=== PATIENT | female | born 1990 | race Two or more races ===

== ENCOUNTER 2018-06-22 08:40 | Emergency (ER) | payer SELFPAY ==
[~2018-06-22] VITALS: Ht 172.7 cm; Wt 72.6 kg
[2018-06-22 08:44] VITALS: BP 123/85
--- NOTE | 2018-06-22 08:50 | NUR ---
ED Nurse Note: Patient walked into ED from home c/o gel earplug stuck in the LEFT ear since this morning patient could not get it out. alert and awake x4, ambulatory steady gait.
[2018-06-22 08:58] VITALS: BP 123/85
[2018-06-22] MEDS ORDERED: CORTISPORIN EAR10 ML OTIC (08:58)
--- NOTE | 2018-06-22 09:04 | Emergency Room Report ---
History of Present Illness General Chief Complaint: Earache Source: Patient Present Illness HPI Patient presents with complaints of foreign body in the left ear Reports that last night she had put an ear plug in an this morning was not able to remove it When she tried to remove it seemed to break up Pain is 4 out of 10 localized to the left ear Denies any discharge denies any posterior ear pain denies any neck pain or photophobia Allergies: Coded Allergies: No Known Allergies (Unverified , 06/22/18) Patient History Past Medical History: see triage record Pertinent Family History: none Last Menstrual Period: 05/2018 Now: No Reviewed Nursing Documentation: PMH: Agreed; PSxH: Agreed Nursing Documentation-PMH Past Medical History: No Stated History Review of Systems All Other Systems: negative except mentioned in HPI Physical Exam Vital Signs Date Time Temp Pulse Resp B/P (MAP) Pulse Ox O2 Delivery O2 Flow Rate FiO2 06/22/18 08:44 97.5 65 19 123/85 98 Room Air Sp02 EP Interpretation: reviewed, normal General Appearance: well appearing, no apparent distress Head: normocephalic, atraumatic Eyes: bilateral eye PERRL, bilateral eye EOMI ENT: other - Patient does have the other ear plug that was used there is a gelatinous material jarrell retained in the left ear visible by external examination Neck: supple Respiratory: lungs clear Musculoskeletal: normal inspection Neurologic: alert, oriented x3 Skin: normal color, no rash Medical Decision Making Diagnostic Impression: Primary Impression: ear foreign body ER Course Given the exam patient does require to have the retained body removed initially using forceps it appears to break up the foreign body therefore two ear curretes were used and with this I was able to remove the foreign body without any further deterioration. Reexamination of the canal appears to be intact tympanic membrane is appropriate, there is some mild erythema in the canal itself and therefore the patient was placed on oral drop antibiotics Last Vital Signs Date Time Temp Pulse Resp B/P (MAP) Pulse Ox O2 Delivery O2 Flow Rate FiO2 06/22/18 08:44 97.5 65 19 123/85 98 Room Air Status: improved Disposition: HOME, SELF-CARE Condition: Improved Scripts Neomycin/Polymyxin B Sulf/Hc* (CORTISPORIN EAR SOLUTION*) 10 Ml Solution 2 DROP OTIC BID for 3 Days, #1 EA Instill in affected ear as directed for 7 days Prov: Valente Hoffmann DO 06/22/18 Patient Instructions: Ear Foreign Body, [id number] Additional Instructions: Patient is provided with the discharge instructions notified to follow up with primary doctor in the next 2-3 days otherwise return to the er with any worsening symptoms. Please note that this report is being documented using DRAGON technology. This can lead to erroneous entry secondary to incorrect interpretation by the dictating instrument. Valente Hoffmann DO Jun 22, 2018 09:04
--- NOTE | 2018-06-22 09:10 | NUR ---
ER DISCHARGE NOTE: Patient is cleared to be discharged per ERMD, pt is aox4, on room air, with stable vital signs. pt was given dc and prescription instructions, pt was able to verbalize understanding, pt id band removed without complications. pt is able to ambulate with steady gait. pt took all belongings.
== END 2018-06-22 09:10 | disposition home or self-care (01) ==
LOC: EMR 08:55
DX: T16.2XXA Foreign body in left ear, initial encounter (principal); X58.XXXA Exposure to other specified factors, initial encounter; Y92.9 Unspecified place or not applicable
CPT/HCPCS: 99283